=== PATIENT | male | born 1970 | race Caucasian/White ===

== ENCOUNTER → 2019-12-30 11:08 | Outpatient (BNVA) | payer OTHER, SELFPAY | PROVIDERS: PCP Family Medicine; Referring Provider Family Medicine; Visit Provider Internal Medicine Cardiovascular Disease | DX: Z76.89 Persons encountering health services in other specified circumstances (principal) ==

== ENCOUNTER → 2021-01-29 09:46 | Outpatient (BNVA) | payer OTHER, SELFPAY | PROVIDERS: PCP Family Medicine; Referring Provider Family Medicine; Visit Provider Internal Medicine Cardiovascular Disease | DX: I20.8 Other forms of angina pectoris (principal) | CPT/HCPCS: 93005 ==

== ENCOUNTER 2021-07-19 08:19 | Emergency (ER) | payer OTHER, SELFPAY ==
[2021-07-19 08:22] VITALS: BP 160/100; PULSE 86; RESP 16; TEMP 35.7; O2SAT 99; BMI 22.6
--- NOTE | 2021-07-19 08:30 | ED_ITS ---
HPI - General Adult General Chief complaint: Back Pain/Injury Stated complaint: back inj work related Time Seen by Provider: 07/19/21 08:30 Source: patient Mode of arrival: ambulatory Limitations: no limitations History of Present Illness HPI narrative: Patient is a 51 year old male presenting to the emergency department today with left sided low back pain. 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 Patient states that he is having left sided low back pain that is radiating down his left leg. Patient states that he has a history of sciatica and this feels similar to that. Patient denies any dizziness, lightheadedness, abdominal pain, nausea, vomiting, fever, chills, blurry vision, double vision, loss of vision, chest pain, difficulty breathing, shortness of breath, night sweats, pain with urination, increased urinary frequency, increased urinary urgency, blood in his urine or stool, syncope or a near syncopal episode, recent trauma or falls, bowel incontinence, bladder incontinence, bowel retention, bladder retention, or any other complaints at this time. Onset (ago): day(s) Location: back Radiation: extremity (left lower extremity) Severity: mild Severity scale (1-10): 3 Quality: dull Pain Consistency: constant Relieving factors: none Exacerbating factors: none Associated symptoms: denies other symptoms Treatments prior to arrival: none Related Data Previous Rx's Medication Instructions Recorded atorvastatin 80 mg tablet 80 mg PO DAILY #90 tab 07/11/20 metoprolol succinate 50 mg 50 mg PO DAILY #90 tab 07/11/20 tablet,extended release 24 hr lisinopril 10 mg tablet 10 mg PO DAILY #90 tab 09/12/20 aspirin 81 mg tablet,delayed 81 mg PO DAILY 90 Days #90 tab 11/23/20 release ezetimibe 10 mg tablet 10 mg PO DAILY #90 tab 12/20/20 Allergies Allergy/AdvReac Type Severity Reaction Status Date / Time codeine [CODEINE] Allergy Intermediate PANCREATIC Verified 01/29/21 09:50 ISSUE, pancreaitis Review of Systems Constitutional: Constitutional: Reports no additional constitutional complaints, Denies chills, Denies fever(s) and Denies night sweats Eyes: Eyes: Reports no additional eye complaints, Denies blurry vision, Denies change in vision, Denies diplopia, Denies eye discharge, Denies loss of vision and Denies eye pain ENT: Denies dizziness Cardiovascular: Cardiovascular: Reports no additional cardiovascular complaints, Denies chest pain, Denies lightheadedness, Denies Loss of Consciousness and Denies dyspnea Respiratory: Respiratory: Reports no additional respiratory complaints and Denies dyspnea Gastrointestinal: Gastrointestinal: Reports no additional gastrointestinal complaints, Denies abdominal pain, Denies melena, Denies hematochezia, Denies change in bowel habits and Denies change in stool character Genitourinary: Genitourinary: Reports no additional male genitourinary complaints, Denies hematuria, Denies oliguria, Denies difficulty urinating, Denies dysuria, Denies urinary frequency, Denies urinary hesitancy, Denies urinary incontinence and Denies urinary urgency Musculoskeletal: Musculoskeletal: Reports no additional musculoskeletal complaints, Reports back pain, Denies numbness and Denies tingling Neurologic: Denies dizziness, Denies loss of vision, Denies numbness and Denies tingling Psychiatric: Psychiatric: Reports no additional psychiatric complaints Endocrine: Endocrine: Reports no additional endocrine complaints Hematologic/Lymphatic: Hematologic/Lymphatic: Reports no additional hematologic/lymphatic complaints Allergic/Immunologic: Allergic/Immunologic: Reports no additional allergic/immunologic complaints PMFSH Past Medical History Attestation statement: The following information was validated with the patient. Source: old records reviewed Medical History (Updated 07/19/21 @ 08:48 by DAVID Serra) CAD (coronary artery disease) Stable angina Surgical History H/O right wrist surgery History of back surgery History of cardiac cath Family History Family History Father History of heart attack CVD (cardiovascular disease) HTN (hypertension) Mother No problems noted. Social History Social History Advance Directives: No Advance Directives Information Provided: No Physical Exam ED Vital Signs: Vital Signs - 24 hr 07/19/21 08:22 Temperature 96.2 F L Pulse Rate 86 Respiratory Rate 16 Blood Pressure 160/100 H Pulse Oximetry 99 BMI result Body Mass Index 22.6 Const General: cooperative, no acute distress, alert and awake Nutritional Appearance: well nourished Orientation/consciousness: patient oriented x3 Limitations: no limitations HENMT Head: Yes normal to inspection and Yes atraumatic Ears: hearing grossly normal bilaterally and external ears normal General nose exam: Normal external nose present, no nasal discharge noted and no epistaxis Face and sinus: Yes normal facial exam, No abrasion and No laceration Mouth: Normal oral and palatal mucosa present, no drooling and no muffled voice Eyes General: appearance normal, both eyes and all related structures Periorbital: periorbital findings normal Eyelids: Yes eyelids normal Conjunctivae: conjunctivae normal Pupils: Equal, round and reactive pupils present EOM: EOMs intact bilaterally Neck Neck: Yes normal visual inspection, Yes full ROM and Yes no lymphadenopathy Chest Chest palpation & inspection: normal inspection of the chest Resp Effort & Inspection: normal respiratory effort and able to speak in complete sentences Auscultation: clear to auscultation bilaterally Cardio Rate: regular rate Rhythm: regular rhythm GI Inspection: Yes normal to inspection Neuro General: patient oriented x3 and moves all extremities Cranial nerves: Yes Equal, round and reactive pupils present Cognition (Neuro): normal cognition Motor exam (neuro): 5/5 motor strength present throughout Sensory Exam: Normal double simultaneous stimulation for sensation Coordination: [id number] test normal Extrem General: Yes normal to inspection, Yes full ROM and Yes capillary refill normal Psych Appearance: grossly normal Mental Status: mental status grossly normal Affect: normal affect Attitude: cooperative Thought process: Normal thought process present Thought content: Normal thought content present Insight: Good insight present (Psych) Medical Decision Making MDM Narrative Medical decision making narrative: Patient is a 51 year old male presenting to the emergency department today with left sided low back pain. Patient's physical exam was unremarkable. I explained my physical exam findings to the patient. I answered all questions asked by the patient. Patient received IM toradol and PO Ativan which he stated helped his symptoms significantly. I stressed the importance of the patient taking his medication as prescribed. I stressed the importance of the patient following up with his primary care provider and established orthopedist. I stressed the importance of the patient returning to the emergency department immediately if his symptoms were to worsen or if he were to develop any dizziness, shortness of breath, difficulty breathing, chest pain, blurry vision, loss of vision, nausea, vomiting, abdominal pain, fever, chills, back pain, or any other complaints. Patient verbalized agreement and understanding with this treatment plan and discharge. Differential Diagnosis Differential Diagnosis: Back pain, muscle spasm Medical Records Medical records reviewed: Yes I reviewed the patient's medical records. Discharge Plan Discharge Clinical Impression: Back spasm Patient Disposition: Home, Self-Care Instructions: Muscle Spasm (ED), Back Pain (ED) Additional Instructions: Follow up with your primary care provider. Return to the emergency department immediately if your symptoms worsen or if you develop any dizziness, shortness of breath, difficulty breathing, chest pain, blurry vision, loss of vision, nausea, vomiting, abdominal pain, fever, chills, back pain, or any other complaints. Prescriptions: No Action atorvastatin 80 mg tablet 80 mg PO DAILY Qty: 90 3RF metoprolol succinate 50 mg tablet extended release 24 hr 50 mg PO DAILY Qty: 90 3RF lisinopril 10 mg tablet 10 mg PO DAILY Qty: 90 4RF aspirin 81 mg tablet,delayed release (DR/EC) 81 mg PO DAILY 90 Days Qty: 90 3RF ezetimibe 10 mg tablet 10 mg PO DAILY Qty: 90 3RF Referrals: [facility] [Provider Group] Isidra Gardiner MD [Primary Care Provider] - Stand Alone Forms: Work/School Release Interventions: ED Discharge Assessment Last Done: 07/19/21 09:07 Discharge Date/Time: 07/19/21 09:08 Print Language: Lithuanian
[2021-07-19] MEDS: Ketorolac Tromethamine 30 MG/ML VIAL IM (08:59)
[2021-07-19] MEDS: LORazepam 1 MG TABLET PO (08:59)
== END 2021-07-19 09:08 | disposition home or self-care (01) ==
LOC: HO.ED 08:49
PROVIDERS: Emergency Provider Emergency Medicine; PCP Internal Medicine
DX: M62.830 Muscle spasm of back (principal); M79.605 Pain in left leg; Z79.899 Other long term (current) drug therapy
CPT/HCPCS: 96372; 99283; 99284; J1885

== ENCOUNTER 2021-07-30 17:53 | Emergency (ER) | payer OTHER, SELFPAY ==
[2021-07-30 18:21] VITALS: BP 142/88; PULSE 83; RESP 16; TEMP 36.2; O2SAT 98; BMI 22.6
[2021-07-30] MEDS: Ketorolac Tromethamine 30 MG/ML VIAL IM (19:30)
[2021-07-30] MEDS: Acetaminophen 325 MG TABLET 650 MG PO (19:30)
[2021-07-30] MEDS: Lidocaine 4 % Patch ADH..PATCH 1 PATCH TRANSDERMA (19:30)
--- NOTE | 2021-07-30 19:37 | ED.BACK ---
HPI - Back Pain/Injury General Chief Complaint: Back Pain/Injury Stated Complaint: back INJ Time Seen by Provider: 07/30/21 19:23 Source: patient Mode of arrival: ambulatory History of Present Illness HPI Narrative: 51-year-old male with past medical history of back surgery, back spasming presenting to the ED complaining of left-sided low back pain radiating down left lower extremity times a few weeks. Admits pain started after painting, but denies direct trauma, injury or fall. Reports associated left leg paresthesias. Denies numbness, tingling, weakness, urinary incontinence/retention, fever, chills. Has not taken anything for pain. Of note patient was seen and treated in the ED on 07/19/2021 for similar symptoms. Admits has MRI scheduled for tomorrow at our facility Related Data Previous Rx's Medication Instructions Recorded atorvastatin 80 mg tablet 80 mg PO DAILY #90 tab 07/11/20 metoprolol succinate 50 mg 50 mg PO DAILY #90 tab 07/11/20 tablet,extended release 24 hr lisinopril 10 mg tablet 10 mg PO DAILY #90 tab 09/12/20 aspirin 81 mg tablet,delayed 81 mg PO DAILY 90 Days #90 tab 11/23/20 release ezetimibe 10 mg tablet 10 mg PO DAILY #90 tab 12/20/20 cyclobenzaprine 5 mg tablet 5 mg PO Q8H PRN 5 Days #14 tab 07/30/21 lidocaine 5 % topical patch 1 patch TOPICAL DAILY PRN #30 ea 07/30/21 (Lidoderm) MDD remove after 12 hours naproxen 500 mg tablet 500 mg PO BID PRN 10 Days #20 tab 07/30/21 Allergies Allergy/AdvReac Type Severity Reaction Status Date / Time codeine [CODEINE] Allergy Intermediate PANCREATIC Verified 01/29/21 09:50 ISSUE, pancreaitis Review of Systems Review of Systems: Constitutional: No Fever, No Chills ENT/Mouth: No Ear Pain, No Nasal Congestion, No sore throat Cardiovascular: No Chest Pain, No SOB Respiratory: No Cough, No Sputum, No Wheezing Gastrointestinal: No Nausea, No Vomiting, No Diarrhea, No Constipation, No Abdominal pain Genitourinary: No Dysuria, No Urinary Frequency, No Hematuria, No Urinary Incontinence/retentionNo Flank Pain Musculoskeletal: + joint pain, No Myalgias, No Joint Swelling Skin: No Skin Lesions, No rash Neuro: No Weakness, No Numbness, + Paresthesias Yes all other systems are reviewed and are negative Neurologic: Denies Sensory deficit (Neuro) [facility] Past Medical History Attestation statement: The following information was validated with the patient. Medical History CAD (coronary artery disease) Stable angina Surgical History H/O right wrist surgery History of back surgery History of cardiac cath Family History Family History Father History of heart attack CVD (cardiovascular disease) HTN (hypertension) Mother No problems noted. Social History Social History Advance Directives: No Advance Directives Information Provided: No Physical Exam Vital Signs: Vital Signs: Last Vital Signs Temp 97.2 F 07/30/21 18:21 Pulse 83 07/30/21 18:21 Resp 16 07/30/21 18:21 BP 142/88 H 07/30/21 18:21 Pulse Ox 98 07/30/21 18:21 BMI result Body Mass Index 22.6 Const: General: cooperative, healthy appearing and no acute distress Orientation/consciousness: patient oriented x3 Limitations: no limitations HEENT: Head: Yes normal to inspection and Yes atraumatic Ears: hearing grossly normal bilaterally General nose exam: Normal external nose present Face and sinus: Yes normal facial exam Eyes: General: appearance normal, both eyes and all related structures EOM: EOMs intact bilaterally Neck: Neck: Yes normal visual inspection and Yes no meningeal signs Resp: Effort & Inspection: normal respiratory effort and no respiratory distress Cardio: Rate: regular rate Heart sounds: S1 normal heart sound present and S2 normal heart sound present Peripheral pulses: dorsalis pedis present : General: Yes no CVA tenderness Back/Spine/Pelvis: Other: No midline thoracic/lumbar spinous tenderness/step-off or deformity. + left-sided lower lumbar MSK tenderness to palpation/muscle spasming reproducing subjective complaint. No erythema/ecchymosis Back: no CVA tenderness Skin: Rashes: no rashes Wounds: no wounds Neuro: Other: Strength intact throughout. No saddle anesthesia. Sensation intact to light touch. Neurovascular intact distally. Ambulating with steady gait General: patient oriented x3, gait normal, tone normal, moves all extremities, no meningeal signs and no focal motor deficits Gait exam (Neuro): Normal gait present Motor exam (neuro): 5/5 motor strength present throughout Sensory Exam: No Sensory deficit (Neuro) Extrem: General: Yes normal to inspection Course Course Course Narrative: Per Mass PAT patient received 60 tablets of [place] on 07/25/21 -patient upset he is not being prescribed stronger medication. Discussed with him and he should still have remaining opiate medication from last week and cannot prescribe additional opiates at this time MDM - Back Pain/Injury MDM Narrative Medical decision making narrative: 51-year-old male with past medical history of back surgery, back spasming presenting to the ED complaining of left-sided low back pain radiating down left lower extremity times a few weeks. On exam vital signs stable, NAD/nontoxic, no midline spinous tenderness throughout, no red flag symptoms, no saddle anesthesia. Ambulating with steady gait. Concern for sciatica versus muscle spasming versus lumbar radiculopathy. Low concern for cauda equina, cord compression, epidural abscess. Patient with scheduled MRI for tomorrow Plan: Pain management, DC home Differential Diagnosis Differential diagnosis: Likely lumbar radiculopathy, sciatica and strain of lumbar region Medical Records Attestation: I reviewed the patient's medical records. Lab Data Attestation: I reviewed the patient's lab results. Discharge Plan Discharge Clinical Impression: Lumbar radiculopathy Patient Disposition: Home, Self-Care Instructions: Lumbar Radiculopathy (ED) Additional Instructions: Your pain is likely musculoskeletal Flexeril is a muscle relaxer, take at night as it makes you drowsy, do not drive, drink alcohol, or operate machinery while taking it Naproxen as an anti-inflammatory / pain medication, take with food Lidoderm patches are numbing patches, apply to painful area In addition take Tylenol at home If symptoms persist or worsen, pain becomes unbearable, you developed urinary retention or incontinence, or weakness return to the ED Prescriptions: New lidocaine [Lidoderm] 5 % adhesive patch,medicated 1 patch topical DAILY MDD remove after 12 hours PRN (Reason: pain) Qty: 30 0RF Rx Instructions: leave on most painful area for up to 12 hrs naproxen 500 mg tablet 500 mg PO BID PRN (Reason: pain) 10 Days Qty: 20 0RF cyclobenzaprine 5 mg tablet 5 mg PO Q8H PRN (Reason: pain (scale score 7-10)) 5 Days Qty: 14 0RF No Action atorvastatin 80 mg tablet 80 mg PO DAILY Qty: 90 3RF metoprolol succinate 50 mg tablet extended release 24 hr 50 mg PO DAILY Qty: 90 3RF lisinopril 10 mg tablet 10 mg PO DAILY Qty: 90 4RF aspirin 81 mg tablet,delayed release (DR/EC) 81 mg PO DAILY 90 Days Qty: 90 3RF ezetimibe 10 mg tablet 10 mg PO DAILY Qty: 90 3RF Referrals: Isidra Gardiner MD [Primary Care Provider] - Stand Alone Forms: Work/School Release
[2021-07-30] MEDS: oxyCODONE HCl Immed Release 5 MG TABLET PO (20:53)
[2021-07-30] MEDS: Cyclobenzaprine HCl 10 MG TABLET PO (20:54)
[2021-07-30 21:14] VITALS: BP 138/86; PULSE 88; RESP 18; TEMP 36.7; O2SAT 100
== END 2021-07-30 21:16 | disposition home or self-care (01) ==
PROVIDERS: Emergency Provider Emergency Medicine; PCP Internal Medicine
DX: M54.16 Radiculopathy, lumbar region (principal); M79.605 Pain in left leg; M79.604 Pain in right leg; Z79.899 Other long term (current) drug therapy
CPT/HCPCS: 96372; 99283; 99284; J1885

== ENCOUNTER 2021-07-31 18:28 | Outpatient (REF) | payer OTHER, SELFPAY ==
--- NOTE | ~2021-07-31 | MR_ITS ---
MR LUMBAR SPINE WITHOUT AND WITH IV CONTRAST CLINICAL INFORMATION: Radiculopathy. COMPARISON: None available. TECHNIQUE: MRI of the lumbar spine was obtained using routine sequences with and without contrast. Intravenous contrast: Gadavist 7.5 mL FINDINGS: There are 5 nonrib-bearing lumbar-type vertebral bodies. Lumbar alignment is maintained. There are chronic endplate Schmorl's nodes at the L1, L2, and L3 levels. Modic type I and Modic type II endplate signal changes at L4-L5 and L5-S1 and L1-L2. There is no additional bone marrow edema. There are no acute fractures. Moderate to severe disc volume loss at L5-S1 and moderate disc volume loss at L4-L5. Partial disc desiccation at all lumbar levels with exception of L1-L2. There is no pathologic intrathecal enhancement. No pathologic enhancement along the cauda equina nerve roots. There is bilateral perinephric stranding. No significant extraspinal soft tissue findings. Hypertrophic degenerative changes across the SI joints bilaterally. L1-L2: Disc contour is normal. Mild bilateral facet arthropathy. No central canal stenosis and no foraminal stenosis. L2-L3: Diffuse annular disc bulge and moderate bilateral facet arthropathy and ligamentum flavum thickening. No central canal stenosis. There is mild foraminal encroachment bilaterally. L3-L4: Diffuse annular disc bulge with a superimposed right lateral disc osteophyte protrusion that compresses the extraforaminal right L3 nerve root. Severe bilateral facet arthropathy and ligamentum flavum thickening. Mild narrowing of the central canal. Mild to moderate right foraminal stenosis. L4-L5: Laminectomy changes. Diffuse annular disc bulge with a superimposed inferiorly migrating left paracentral disc extrusion that compresses the traversing left L5 nerve root within the left L5 lateral recess. There is enhancing granulation/scar tissue within the epidural space at L4-L5. Disc osteophyte and facet arthropathy result in mild to moderate bilateral foraminal stenosis. L5-S1: Right hemilaminectomy and microdiscectomy changes. Diffuse disc osteophyte and moderate bilateral facet arthropathy. No central canal stenosis. There is a left lateral disc protrusion is in part disc osteophyte which results in severe left foraminal stenosis with compression of the exiting left L5 nerve root. Right lateral disc osteophyte and facet arthropathy result in moderate right-sided foraminal stenosis. MR/MR lumbar spine wo/w con IMPRESSION: - At L5-S1 there are right hemilaminectomy and microdiscectomy changes. A LEFT LATERAL DISC PROTRUSION THAT IS IN PART DISC OSTEOPHYTE RESULTS IN SEVERE LEFT FORAMINAL STENOSIS WITH COMPRESSION OF THE EXITING LEFT L5 NERVE ROOT. Spondylitic changes also result in moderate right-sided foraminal stenosis at L5-S1. - At L4-L5, there are laminectomy changes and there is enhancing granulation/scar tissue within the epidural space. THERE IS AN INFERIORLY MIGRATING LEFT PARACENTRAL DISC EXTRUSION AT L4-L5 THAT COMPRESSES THE TRAVERSING LEFT L5 NERVE ROOT WITHIN THE LEFT L5 LATERAL RECESS. Mild to moderate bilateral foraminal stenosis at this level. - At L3-L4, a right lateral disc osteophyte protrusion compresses the extraforaminal right L3 nerve root. Spondylitic changes at L3-L4 result in mild central canal stenosis. Severe bilateral facet arthropathy at this level.
== END 2021-07-31 18:29 | disposition home or self-care (01) ==
LOC: HO.MRI 18:28
PROVIDERS: Visit Provider Internal Medicine
DX: M54.17 Radiculopathy, lumbosacral region (principal)
CPT/HCPCS: 72158; A9585

== ENCOUNTER 2021-10-23 06:14 | Outpatient (REF) | payer OTHER, SELFPAY ==
--- NOTE | ~2021-10-23 | FL_ITS ---
EXAMINATION: XR FLUOROSCOPY WITH IMAGES CLINICAL INFORMATION: Radiculopathy. COMPARISON: Lumbar spine of 07/31/2021, TECHNIQUE: Fluoroscopy performed by Dr. Jayson Reid. Fluoroscopy time: 0.5 minutes. Cumulative Dose: 9.16 mGy-cm DAP: 1.93 Gy-cm2 Images: 2. FINDINGS: 2 images demonstrate needles and contrast from left-sided injections at the L4 epidural space. FL/FL guidance in treatment room IMPRESSION: Fluoroscopy for pain management procedure.
== END 2021-10-23 06:15 | disposition home or self-care (01) ==
LOC: HO.RADIR 06:14
PROVIDERS: Visit Provider Anesthesiology
DX: M54.16 Radiculopathy, lumbar region (principal); M51.36 Other intervertebral disc degeneration, lumbar region; M96.1 Postlaminectomy syndrome, not elsewhere classified; M47.816 Spondylosis without myelopathy or radiculopathy, lumbar region
CPT/HCPCS: 64483; 64484; J3300

== ENCOUNTER → 2021-12-17 10:00 | Outpatient (RCR) | payer OTHER, SELFPAY ==
[2020-01-10 16:14] LABS: COVID-19 Test Negative (Negative)
== END | disposition home or self-care (01) ==
LOC: HO.EMPCOV 01-10 15:30
PROVIDERS: Visit Provider Internal Medicine
DX: Z20.828 Contact with and (suspected) exposure to other viral communicable diseases (principal)
CPT/HCPCS: 87635; C9803

== ENCOUNTER → 2022-04-08 10:02 | Outpatient (BNVA) | payer OTHER, SELFPAY | PROVIDERS: PCP Internal Medicine; Referring Provider Internal Medicine; Visit Provider Internal Medicine Cardiovascular Disease | DX: I20.8 Other forms of angina pectoris (principal) | CPT/HCPCS: 93005 ==

== ENCOUNTER 2023-05-14 08:46 | Outpatient (AMB) | payer OTHER, SELFPAY ==
[2023-05-14 09:05] VITALS: BP 130/80; PULSE 63; BMI 22.9
--- NOTE | 2023-05-14 09:05 | A.OFFVIS_ITS ---
Intake Vital Signs 05/14/23 09:05 Height 5 ft 11 in Weight 164 lb 7.437 oz BMI 22.9 BP 130/80 Blood Pressure Location Lt brachial Position Sitting Pulse 63 Intake Visit Reasons: 1 year fu Intake Note: pt its here for a 1 yr f/up/ pt its been feeling fine. Manager Local Required: No Accompanied by: Self / Same As Patient Allergies codeine [CODEINE] Allergy (Intermediate, Verified 04/08/22 10:09) PANCREATIC ISSUE, pancreaitis Medication List - Last Reconciled 05/14/23 by Rajinder Pickard MD aspirin 81 mg PO DAILY atorvastatin 80 mg PO DAILY ezetimibe 10 mg PO DAILY lisinopril 10 mg PO DAILY metoprolol succinate ER 50 mg PO DAILY naproxen 500 mg PO BID PRN 10 days HPI HPI Comments History of Present Illness Details 53-year-old gentleman here for follow-up . He was seen at [facility] and underwent cardiac catheterization revealing mid RCA plaque rupture which was treated with a drug-eluting stent. He has been doing fine and has no functional limitations. He has been taken off the Brilinta. He is taking baby aspirin. He had back injury and was out of work for 5 months. He had injections locally and has recovered completely at this stage. Denying any issues at this point otherwise. His main questions are can he stops his cardiovascular medications or or these lifelong medications. 05/14/2023: He returns for follow-up. He has been doing well. No chest discomfort shortness of breath currently. He is saying around 6 months ago he was riding his bike he has some chest tightness and he had aching in his chest that day only. He said since then he has not had any further symptoms. He is active at his work. Taking medications regularly otherwise. Blood pressure control is good. [facility] Medical History CAD (coronary artery disease) Stable angina Surgical History H/O right wrist surgery History of cardiac cath History of back surgery Family History Father History of heart attack CVD (cardiovascular disease) HTN (hypertension) Mother No problems noted. Social History Alcohol intake: current Alcohol intake frequency: 0-2 drinks per day Alcohol type: beer Patient Tobacco Use Status: Current everyday Tobacco user Cigarette Packs Per Day: 0.5 Cigarettes Per Day: 10 Years Smoked: 25 +/- Review of Systems Const Denies chills, Denies fatigue, Denies fever(s), Denies frequent falls, Denies weakness, Denies weight gain and Denies weight loss ENT Denies dizziness Card Denies chest pain, Denies leg edema, Denies lightheadedness, Denies palpitations, Denies dyspnea and Denies dyspnea on exertion Resp Denies cough, Denies dyspnea and Denies dyspnea on exertion GI Denies hematochezia Musc Denies abnormal gait, Denies muscle weakness, Denies numbness, Denies radiating pain into limb and Denies tingling Neuro Denies abnormal gait, Denies dizziness, Denies frequent falls, Denies numbness, Denies tingling and Denies weakness Endo Denies fatigue and Denies palpitations Physical Exam Vital Signs: Last Vital Signs Pulse 63 05/14/23 09:05 BP 130/80 05/14/23 09:05 BMI result Body Mass Index 22.9 GENERAL APPEARANCE: in no acute distress, pleasant. NECK: no carotid bruit, no jugular venous distention. SKIN: no suspicious lesions, warm and dry. HEART: no murmurs, regular rate and rhythm. LUNGS: clear to auscultation bilaterally. ABDOMEN: soft, nontender. EXTREMITIES: no edema. PERIPHERAL PULSES: equal. NEUROLOGIC: No gross deficits, AAO X 3 Office Procedures EKG Details: Sinus rhythm 63 beats per minute, normal axis, low voltage, QTC 407 milliseconds. [id number], Complete Assessment & Plan Assessment & Plan (1) Stable angina: Code(s): I20.8 - Other forms of angina pectoris Plan [age] year gentleman who is here for follow-up. He has known history of coronary disease with previous PCI. He has been doing well. He has low voltage on his EKG. Concerning symptoms currently. Continue take the same medications. We will arrange an echocardiogram for him to assess LV function as well as to look for any pericardial effusion given the low voltage. Clinically he has been stable. Thank you for allowing me to participate in the care of your patient. Please feel free to contact me if you have any questions. Orders: Orders CA echo transthorac w con Today I25.10 - Atherosclerotic heart disease of [place] coronary artery without angina pectoris Coding Level of Care Code Est Pt Level 4 (41799) Diagnoses Stable angina I20.8 CPT Codes EKG - CPT: 11825-[id number], Complete ([id number])
== END 2023-05-14 09:25 | disposition home or self-care (01) ==
PROVIDERS: PCP Physician Assistant; Visit Provider Internal Medicine Cardiovascular Disease
DX: I20.89 Other forms of angina pectoris (principal)
CPT/HCPCS: 93010; 99214

== ENCOUNTER → 2023-05-14 08:46 | Outpatient (BNVA) | payer OTHER, SELFPAY | PROVIDERS: PCP Physician Assistant; Visit Provider Internal Medicine Cardiovascular Disease | DX: I25.118 Atherosclerotic heart disease of native coronary artery with other forms of angina pectoris (principal) | CPT/HCPCS: 93005 ==

== ENCOUNTER → 2023-05-19 10:53 | Outpatient (REF) | payer OTHER, SELFPAY ==
--- NOTE | 2023-05-19 10:55 | CA_ITS ---
Transthoracic Echocardiogram Patient (Last, First, Middle): Satish Pena J Gender: Male Date of : 1970 Age: 53 Procedure Date: 05/19/2023 Procedure Type: Transthoracic Echocardiogram Location: OP Height: 180.34 cm Weight: 74.39 kg BSA: 1.94 m2 Heart Rate: bpm BP: 130 / 78 mmHg Athletics Teacher: JESSICA Referring MD: Rajinder Pickard MD Neuropsychology Director: Rajinder Pickard MD Symptoms: I25.10 - Atherosclerotic heart disease of [place] coronary artery without... Study Quality: Adequate Conclusions: - Normal left ventricular size, thickness, systolic function, and wall motion. The visually estimated ejection fraction is between 55-60%. Diastolic function is normal for age. GLS reduced -16%. - There is normal right ventricular systolic function. RV size upper limit of normal. - The left atrium is normal in size. The right atrium is mildly dilated. - There is mild dilatation of the sinuses of Valsalva measuring 4.21 cm and mild dilatation of the ascending aorta measuring 3.70 cm. Findings Left Ventricle Normal left ventricular size, thickness, systolic function, and wall motion. The visually estimated ejection fraction is between 55-60%. Diastolic function is normal for age. GLS reduced -16%. Right Ventricle There is normal right ventricular systolic function. RV size upper limit of normal. Atria The left atrium is normal in size. The right atrium is mildly dilated. Aortic Valve Normal aortic valve structure and function. There is no aortic valve stenosis. There is no aortic valve regurgitation. Mitral Valve There is no mitral valve regurgitation. There is no mitral valve stenosis. Pulmonic Valve Normal pulmonic valve structure and function. There is trace pulmonic valve regurgitation. Tricuspid Valve Normal tricuspid valve structure. There is trace tricuspid valve regurgitation. Normal right atrial pressure. There is no evidence of pulmonary hypertension. Great Vessels There is mild dilatation of the sinuses of Valsalva measuring 4.21 cm and mild dilatation of the ascending aorta measuring 3.70 cm. The visualized portions of the pulmonary artery and branches are normal. Venous The inferior vena cava is normal in size and collapses greater than 50% with inspiration. Pericardium/Pleural There is no evidence of pericardial effusion. Prior Study Comparison No prior study available for comparison. Measurements 2D Linear Measurements IVSd: 1.02 0.6-0.9/0.6-1.0 cm LVIDd: 5.10 3.9-5.3/4.2-5.9 cm LVIDd Index: 2.63 2.4-3.2/2.2-3.1 cm/m2 LVIDs: 3.25 2.0-3.6 cm LVPWd: 0.88 0.7-1.1 cm LA Diam: 3.20 2.7-3.8/3.0-4.0 cm LAIDs Index: 1.65 1.5-2.3 cm/m2 LV Mass: 218.76 67-162/88-224 g LV Mass Index: 112.76 43-95/49-115 g/m2 LVOT Diam: 2.10 3.0+(-)1.3 cm 2D Systolic Function EF 4C: 55.30 >55% EF 2C: 58.30 >55% EF BiP: 55.60 >55% Mitral Valve MV Pk E: 0.50 MV PK A: 0.59 MV Decel Time: 249.00 E/A: 0.90 E'Lateral: 9.57 E'Medial: 8.27 E/E' Med: 6.10 E/E' Lat: 5.20 PHT: 73.00 MVA PHT: 3.01 Decel Roosevelt: 2.01 Aortic Valve AoV Pk Mariano: 1.11 AoV Mn Mariano: 0.71 AoV VTI: 0.24 AoV Pk Grad: 5.00 Aov Mn Grad: 2.00 JOANIE Cont.VTI: 2.21 LVOT LVOT Pk Mariano: 0.83 LVOT Mn Mariano: 0.46 LVOT VTI: 0.15 LVOT Pk Grad: 3.00 LVOT Mn Grad: 1.00 LVOT Diam: 2.10 LVOT Area: 3.46 Diastolic Function MV Pk E: 0.50 MV Pk A: 0.59 E/A: 0.90 E'Medial: 8.27 E/E' Med: 6.10 E' Laterial: 9.57 E/E' Lat: 5.20 Right Ventricle TAPSE (mm): 26.10 TVS' Mariano: 9.90 Tricuspid Valve RA Press: 3.00 Great Vessels Aorta Sinus of Valsalva: 4.21 2.0-3.[address] Ridge: 2.85 1.7-3.4 cm Ao Asc: 3.70 2.1-3.4 cm Updated in Other Vendor System with Status of Final Rajinder Pickard MD electronically signed on 05/19/2023 12:44:58 PM with status of Final
== END ==
LOC: HO.CARD 10:53
PROVIDERS: Visit Provider Internal Medicine Cardiovascular Disease
DX: I25.10 Atherosclerotic heart disease of native coronary artery without angina pectoris (principal)
CPT/HCPCS: 93306; 93356

== ENCOUNTER → 2023-05-19 10:55 | Outpatient (BNV) | payer OTHER, SELFPAY | PROVIDERS: Visit Provider Internal Medicine Cardiovascular Disease | DX: I25.10 Atherosclerotic heart disease of native coronary artery without angina pectoris (principal) | CPT/HCPCS: 93306; 93356 ==

== ENCOUNTER 2023-07-01 11:20 | Emergency (ER) | payer OTHER, SELFPAY ==
--- NOTE | ~2023-07-01 | XR_ITS ---
EXAMINATION: XR CHEST CLINICAL INFORMATION: Fall, chest trauma COMPARISON: 12/01/2018 TECHNIQUE: Frontal view of the chest was obtained. FINDINGS: No significant abnormality is noted involving the heart, lungs, mediastinum, bony thorax or soft tissues. XR/XR chest 1V IMPRESSION: Unremarkable examination.
--- NOTE | ~2023-07-01 | XR_ITS ---
EXAMINATION: XR ELBOW, LEFT CLINICAL INFORMATION: Fell off ladder COMPARISON: Same day left forearm TECHNIQUE: AP, lateral, and oblique views of the left elbow. FINDINGS: The bones are intact. There is mild soft tissue swelling over the olecranon. No fracture or joint effusion. Alignment is anatomic. Joint spaces are maintained. XR/XR elbow LT 2V IMPRESSION: No bony abnormality.
--- NOTE | ~2023-07-01 | XR_ITS ---
EXAMINATION: XR FOREARM, LEFT CLINICAL INFORMATION: Fell off ladder COMPARISON: Same day left elbow TECHNIQUE: AP and lateral views of the left forearm were obtained. FINDINGS: The bones are intact. There is mild soft tissue swelling of the olecranon which can be seen with olecranon bursitis. No fracture. Imaged portions of the elbow and wrist are unremarkable. XR/XR forearm LT 2V IMPRESSION: No acute bony abnormality. Probable mild olecranon bursitis.
[2023-07-01 11:45] VITALS: BP 122/78; PULSE 65; RESP 20; TEMP 35.9; O2SAT 97; BMI 23.0
--- NOTE | 2023-07-01 11:47 | ED.WOUNDLAC ---
HPI - Wound/Laceration General Chief Complaint: Fall Stated Complaint: l arm laceration Time Seen by Provider: 07/01/23 12:54 Source: patient Mode of arrival: ambulatory Limitations: no limitations History of Present Illness HPI narrative: 53-year-old male history of stable angina, CAD, degenerative disc disease, post laminectomy syndrome presenting to the emergency department for evaluation of left elbow pain with subsequent laceration status post fall off 3 ft ladder, patient reports he was leaning over he leaned over to much and fell right onto his left elbow, the ladder kicked underneath him and scraped him in the chest wall. He reports he has not having chest pain or shortness of breath just burning from the abrasion. He does report that the laceration is large overlying his left elbow. Last tetanus shot about 3 years ago. He reports significant discomfort to his left elbow. Denies numbness, tingling, chest pain, shortness of breath, nausea, vomiting, abdominal pain, headache, vision changes, dizziness and weakness. No head strike or loss of consciousness. Patient takes aspirin. NIHSS_0 GCS- 15 Related Data Previous Rx's ?Medication ?Instructions ?Recorded naproxen 500 mg tablet 500 mg PO BID PRN pain 10 days #20 04/08/22 tabs ezetimibe 10 mg tablet 10 mg PO DAILY #90 tabs 10/15/22 aspirin 81 mg tablet,delayed 81 mg PO DAILY #90 tabs 12/04/22 release lisinopril 10 mg tablet 10 mg PO DAILY #90 tabs 03/04/23 atorvastatin 80 mg tablet 80 mg PO DAILY #90 tabs 06/30/23 metoprolol succinate 50 mg 50 mg PO DAILY #90 tabs 06/30/23 tablet,extended release 24 hr cephalexin 500 mg tablet 500 mg PO Q6H 7 days #28 tabs 07/01/23 ketorolac 10 mg tablet 10 mg PO TID PRN pain 5 days #15 07/01/23 tabs Allergies Allergy/AdvReac Type Severity Reaction Status Date / Time codeine [CODEINE] Allergy Intermediate PANCREATIC Verified 07/01/23 11:47 ISSUE, pancreaitis Review of Systems Review of Systems: Yes all other systems are reviewed and are negative PMFSH Past Medical History Attestation statement: The following information was validated with the patient. Source: old records reviewed and nursing notes reviewed Medical History Stable angina CAD (coronary artery disease) Surgical History H/O right wrist surgery History of cardiac cath History of back surgery Family History Family History Father History of heart attack CVD (cardiovascular disease) HTN (hypertension) Mother No problems noted. Social History Social History Alcohol intake: current Alcohol intake frequency: 0-2 drinks per day Alcohol type: beer Patient Tobacco Use Status: Current everyday Tobacco user Cigarette Packs Per Day: 0.5 Cigarettes Per Day: 10 Years Smoked: 25 +/- Advance Directives: No Advance Directives Information Provided: Yes Do you have a plan to hurt others: No Plan Physical Exam Vital Signs: Vital Signs: Last Vital Signs Temp 96.7 F L 07/01/23 15:12 Pulse 65 07/01/23 15:12 Resp 20 07/01/23 15:12 BP 122/78 07/01/23 15:12 Pulse Ox 97 07/01/23 15:12 O2 Del Method Room Air 07/01/23 15:12 BMI result Body Mass Index 23.0 vss Appearance: Alert.? Oriented X3.? No acute distress.? Head: Normocephalic, atraumatic, no step-offs or deformities Eyes: Pupils equal, round and reactive to light.? ENT: Pharynx normal.? Neck: Normal inspection.? Neck supple.? CVS: Normal heart rate and rhythm.? Pulses normal.? Respiratory: No respiratory distress.? Breath sounds normal.? Abdomen: Soft and nontender.? Skin: Skin warm and dry.? Normal skin color.? Normal skin turgor.? Extremities: No lower extremity edema.? No calf ttp. 5/5 strength to bilateral upper and lower extremities 2+ radial pulses equal bilateral, 2+ brachial pulses equal bilateral. Normal hand crushing foreman. No wrist drop. Normal sensation distally bilaterally. There is a large 10 cm laceration traingular shaped overlying the left elbow no visualized FB. Full Rom to b/l elbows. Back: No midline tenderness, no C-spine tenderness, full range of motion, no CVA tenderness bilaterally Neuro: Oriented X 3.? No motor deficit.? No sensory deficit. CN 2-12 intact . Normal ivsyef-[id number], [id number]-[id number] steady tandem gait normal coordination. Course Course Course Narrative: This is a rapid medical exam completed by Mary [employer] PROFESSOR: Additional HPI, ROS, PE not included below will be deferred to primary provider. Fell off a ladder roughly 3 feet. No LOC, no dizziness or cp prior to falling. Laceration left arm with pain and throbbing sensation. On baby ASA. Last tetanus 3-4 years ago Reevaluation(s) Reevaluation #1: No acute bony abnormality in the left forearm probable mild olecranon bursitis likely secondary to trauma or fall. X-ray of left elbow no bony abnormality. Laceration to left elbow repaired with 8, 4-0 sutures, no complications patient tolerated well. Before procedure the area was extensively irrigated Time: 14:39 Reevaluation #2: CXR pending. Time: 14:42 Reevaluation #3: Chest x-ray unremarkable. Plan at this time is discharge. Educated patient on diagnosis and treatment plan, answered all question, patient verbalizes understanding. At this time patient will be discharged home, advised to return with new or worsening symptoms. Educated on worrisome signs and symptoms and when to return. At this time I feel comfortable discharge home. Time: 15:45 Medications Administered Discontinued Medications Generic Name Dose Route Start Last Admin Trade Name Waleq PRN Reason Stop Dose Admin Ketorolac Tromethamine 30 mg 07/01/23 13:05 07/01/23 13:24 Ketorolac Tromethamine 30 Mg/Ml Vial IM 07/01/23 13:06 30 mg ONCE ONE Administration Lidocaine HCl 5 ml 07/01/23 13:06 07/01/23 14:38 Lidocaine Hcl 2 % Mpf 5 Ml Vial INFILTRATI 07/01/23 13:07 Not Given ONCE ONE Lidocaine HCl 5 ml 07/01/23 13:06 07/01/23 14:38 Lidocaine Hcl 2 % Mpf 5 Ml Vial INFILTRATI 07/01/23 13:07 Not Given ONCE ONE Lidocaine HCl 5 ml 07/01/23 13:06 07/01/23 14:38 Lidocaine Hcl 2 % Mpf 5 Ml Vial INFILTRATI 07/01/23 13:07 Not Given ONCE ONE Lidocaine HCl 15 ml 07/01/23 14:36 07/01/23 14:42 Lidocaine Hcl 1 % Mpf 5 Ml Vial INFILTRATI 07/01/23 14:37 15 ml ONCE ONE Administration Lorazepam 1 mg 07/01/23 13:06 07/01/23 13:24 Lorazepam 1 Mg Tablet PO 07/01/23 13:07 1 mg ONCE ONE Administration Medical Decision Making Medical Decision Making [facility] Narrative: 1314 53-year-old male presents with left elbow pain and laceration overlying as well as abrasions overlying the right chest wall status post fall off 3 ft ladder. No head strike or loss of consciousness Small abrasion overlying the right chest wall. No lower extremity edema.? No calf ttp. 5/5 strength to bilateral upper and lower extremities 2+ radial pulses equal bilateral, 2+ brachial pulses equal bilateral. Normal hand crushing foreman. No wrist drop. Normal sensation distally bilaterally. There is a large 10 cm laceration overlying the left elbow no visualized FB. Full ROM to b/l elbows. Neuro nonfocal NIHSS-0 GCS- 15 History and physical exam concerning for laceration that will require repair to left elbow will rule out fracture dislocations of elbow although unlikely. No signs of neurovascular compromise or threat to upper extremity or lower extremity limbs. Unlikely intracranial hemorrhage, stroke, posterior stroke, NIH stroke scale 0 GCS 15, neuro nonfocal. Chest wall abrasion likely secondary to latter scratching his chest wall, unlikely hemorrhage, or internal injury to chest, abdomen or pelvis. Plan at this time will obtain x-ray of left elbow and x-ray of chest. Will repair laceration. Differential Diagnosis Differential Diagnoses: The differential diagnosis associated with the presentation includes History and physical exam concerning for laceration that will require repair to left elbow will rule out fracture dislocations of elbow although unlikely. No signs of neurovascular compromise or threat to upper extremity or lower extremity limbs. Unlikely intracranial hemorrhage, stroke, posterior stroke, NIH stroke scale 0 GCS 15, neuro nonfocal. Chest wall abrasion likely secondary to latter scratching his chest wall, unlikely hemorrhage, or internal injury to chest, abdomen or pelvis. Admission/Observation Consideration of admission/observation: Escalation of care including admission/observation considered unlikely Lab Data [facility] Lab Attestation statement: I reviewed the patient's lab results. Independent Interpretation I performed an independent interpretation of an: Plain X-Ray Radiology Impression Discussion of test interpretation with radiology: I have reviewed the radiologist's reading. External Record Review External record reviewed: Inpatient record, Office record, Outpatient record, Prior outpatient labs, Prior outpatient radiology, Primary care record and Outside ED record Prescription Management I considered prescription management with: Pain Medication Critical Care Time Critical Care Time Critical Care Time: No Discharge Plan Discharge Clinical Impression: Chest wall contusion, Abrasion of chest wall, Laceration of elbow, left, Elbow pain, left Patient Disposition: Still a Patient Instructions: Laceration (ED), Contusion in Adults (ED), Abrasion (ED), Laceration Without Closure (ED) Additional Instructions: Take your medications as prescribed. If you were prescribed antibiotics today, it is important that you take your medication to their entirety, do not skip any doses, do not finish them early. Follow-up with your primary care provider this week. Return to the emergency department with new or worsening symptoms. Such as fevers, chills, chest pain, shortness of breath, nausea, vomiting, dizziness, headache, vision changes, lethargy In case of emergency call 911 Return in 7-10 days for suture removal. Look out for signs of infection, redness, swelling, pain, discharge or fever. Toradol has been sent to your pharmacy, you tolerated this well in the department. Please take this as prescribed do not take this with ibuprofen, or other NSAIDs, do not mix this with alcohol. Side effects of this medication including increased risk for bleeding and possible kidney injury. If you develop any new or worsening symptoms please return. Or if you experience chest pain, shortness of breath please return. Leave dressing on until tonight --> open to air let it dry. XR/XR forearm LT 2V IMPRESSION: No acute bony abnormality. Probable mild olecranon bursitis. XR/XR elbow LT 2V IMPRESSION: No bony abnormality. XR/XR chest 1V IMPRESSION: Unremarkable examination. Prescriptions: New ketorolac 10 mg tablet 10 mg PO TID PRN (Reason: pain) 5 Days Qty: 15 0RF cephalexin 500 mg tablet 500 mg PO Q6H 7 Days Qty: 28 0RF No Action ezetimibe 10 mg tablet 10 mg PO DAILY Qty: 90 3RF aspirin 81 mg tablet,delayed release (DR/EC) 81 mg PO DAILY Qty: 90 3RF lisinopril 10 mg tablet 10 mg PO DAILY Qty: 90 3RF metoprolol succinate 50 mg tablet extended release 24 hr 50 mg PO DAILY Qty: 90 4RF atorvastatin 80 mg tablet 80 mg PO DAILY Qty: 90 4RF naproxen 500 mg tablet 500 mg PO BID PRN (Reason: pain) 10 Days Qty: 20 0RF Referrals: Physician,Unknown J [Primary Care Provider] - 2 days Stand Alone Forms: Work/School Release Interventions: ED Discharge Assessment Last Done: 07/01/23 15:12 Discharge Date/Time: 07/01/23 15:13 Print Language: Spanish
[2023-07-01] MEDS: LORazepam 1 MG TABLET PO (13:24)
[2023-07-01] MEDS: Ketorolac Tromethamine 30 MG/ML VIAL IM (13:24)
[2023-07-01] MEDS: Lidocaine HCl 1 % MPF 5 ML VIAL 15 ML INFILTRATI (14:42)
[2023-07-01 15:12] VITALS: BP 122/78; PULSE 65; RESP 20; TEMP 35.9; O2SAT 97
== END 2023-07-01 15:13 | disposition still patient (30) ==
PROVIDERS: Emergency Provider Student in an Organized Health Care Education/Training Program
DX: S51.012A Laceration without foreign body of left elbow, initial encounter (principal); S20.219A Contusion of unspecified front wall of thorax, initial encounter; S20.311A Abrasion of right front wall of thorax, initial encounter; M25.522 Pain in left elbow; I25.118 Atherosclerotic heart disease of native coronary artery with other forms of angina pectoris; Z79.82 Long term (current) use of aspirin; W11.XXXA Fall on and from ladder, initial encounter; Y93.9 Activity, unspecified; Y92.9 Unspecified place or not applicable; Y99.9 Unspecified external cause status
CPT/HCPCS: 12004; 71045; 73070; 73090; 96372; 99284; J1885

== ENCOUNTER 2023-07-08 15:10 | Emergency (ER) | payer OTHER, SELFPAY ==
[2023-07-08 15:13] VITALS: BP 137/95; PULSE 68; RESP 18; TEMP 36.8; O2SAT 96; BMI 22.7
--- NOTE | 2023-07-08 15:31 | ED_ITS ---
HPI - Wound/Laceration General Chief Complaint: Wound/Laceration Stated Complaint: Suture removal Time Seen by Provider: 07/08/23 15:30 Source: patient and old records reviewed Mode of arrival: ambulatory Limitations: no limitations History of Present Illness HPI narrative: 53-year-old male presents to the ER for suture removal and wound evaluation. Patient was seen here 7 days ago for a laceration to his left elbow region. Eight sutures were placed to close the wound. Reports adequate wound healing with no significant redness or drainage. Onset (ago): day(s) () Extremity Location: left: elbow Context: accidental Associated symptoms: none Related Data Previous Rx's ?Medication ?Instructions ?Recorded naproxen 500 mg tablet 500 mg PO BID PRN pain 10 days #20 04/08/22 tabs ezetimibe 10 mg tablet 10 mg PO DAILY #90 tabs 10/15/22 aspirin 81 mg tablet,delayed 81 mg PO DAILY #90 tabs 12/04/22 release lisinopril 10 mg tablet 10 mg PO DAILY #90 tabs 03/04/23 atorvastatin 80 mg tablet 80 mg PO DAILY #90 tabs 06/30/23 metoprolol succinate 50 mg 50 mg PO DAILY #90 tabs 06/30/23 tablet,extended release 24 hr cephalexin 500 mg tablet 500 mg PO Q6H 7 days #28 tabs 07/01/23 ketorolac 10 mg tablet 10 mg PO TID PRN pain 5 days #15 07/01/23 tabs Allergies Allergy/AdvReac Type Severity Reaction Status Date / Time codeine [CODEINE] Allergy Intermediate PANCREATIC Verified 07/08/23 15:16 ISSUE, pancreaitis Review of Systems Review of Systems: Yes all other systems are reviewed and are negative [facility] Past Medical History Medical History Stable angina CAD (coronary artery disease) Surgical History H/O right wrist surgery History of cardiac cath History of back surgery Family History Family History Father History of heart attack CVD (cardiovascular disease) HTN (hypertension) Mother No problems noted. Social History Social History Alcohol intake: current Alcohol intake frequency: 0-2 drinks per day Alcohol type: beer Patient Tobacco Use Status: Current everyday Tobacco user Cigarette Packs Per Day: 0.5 Cigarettes Per Day: 10 Years Smoked: 25 +/- Advance Directives: No Advance Directives Information Provided: No Physical Exam Vital Signs: Vital Signs: Last Vital Signs Temp 98.2 F 07/08/23 16:52 Pulse 68 07/08/23 16:52 Resp 18 07/08/23 16:52 BP 137/95 H 07/08/23 16:52 Pulse Ox 96 07/08/23 16:52 O2 Del Method Room Air 07/08/23 16:52 BMI result Body Mass Index 22.7 Appearance: Alert. Oriented X3. No acute distress. HEENT: normal inspection CVS: Normal heart rate and rhythm. Pulses normal. Respiratory: No respiratory distress. Skin: Skin warm and dry. Normal skin color. Normal skin turgor. No rashes. Extremities: Left elbow with a v-shaped wound proximally 2.5 x2.5 cm with some central scabbing, minimal erythema at the medial side, no fluctuance or induration, no drainage. No warmth. Wound is well approximated without any dehiscence Neuro: Oriented X 3. Grossly normal, nonfocal Medical Decision Making Medical Decision Making MDM Narrative: 53-year-old male presents to the ER for evaluation of his wound sustained 7 days ago when he fell off a 3 ft ladder sustaining a laceration to his left elbow. He required 8 sutures for wound closure. Wound appears to be healing appropriately. No evidence of infection at this time. All 8 sutures were successfully removed in triage. steri strips were applied to ensure wound closure and appropriate healing. Wound care discussed with the patient. He is stable for discharge home Differential Diagnosis Differential Diagnoses: The differential diagnosis associated with the presentation includes Appropriate wound healing, delayed wound healing, cellulitis, dehiscence External Record Review External record reviewed: Outpatient record, Prior outpatient labs and Prior outpatient radiology Prescription Management I considered prescription management with: Pain Medication and Antibiotic Critical Care Time Critical Care Time Critical Care Time: No Discharge Plan Discharge Clinical Impression: Visit for suture removal Patient Disposition: Home, Self-Care Instructions: Stitches Removal (ED) Prescriptions: No Action ezetimibe 10 mg tablet 10 mg PO DAILY Qty: 90 3RF aspirin 81 mg tablet,delayed release (DR/EC) 81 mg PO DAILY Qty: 90 3RF lisinopril 10 mg tablet 10 mg PO DAILY Qty: 90 3RF metoprolol succinate 50 mg tablet extended release 24 hr 50 mg PO DAILY Qty: 90 4RF atorvastatin 80 mg tablet 80 mg PO DAILY Qty: 90 4RF ketorolac 10 mg tablet 10 mg PO TID PRN (Reason: pain) 5 Days Qty: 15 0RF cephalexin 500 mg tablet 500 mg PO Q6H 7 Days Qty: 28 0RF naproxen 500 mg tablet 500 mg PO BID PRN (Reason: pain) 10 Days Qty: 20 0RF Interventions: ED Discharge Assessment Last Done: 07/08/23 16:52 Discharge Date/Time: 07/08/23 16:52 Print Language: Irish
[2023-07-08 16:13] VITALS: BP 137/95; PULSE 68; RESP 18; TEMP 36.8; O2SAT 96
[2023-07-08 16:52] VITALS: BP 137/95; PULSE 68; RESP 18; TEMP 36.8; O2SAT 96
== END 2023-07-08 16:52 | disposition home or self-care (01) ==
LOC: HO.ED 16:46
PROVIDERS: Emergency Provider Emergency Medicine; PCP Physician Assistant
DX: S51.012D Laceration without foreign body of left elbow, subsequent encounter (principal); X58.XXXD Exposure to other specified factors, subsequent encounter
CPT/HCPCS: 99282

== ENCOUNTER 2024-06-02 10:34 | Outpatient (AMB) | payer OTHER, SELFPAY ==
--- NOTE | 2024-06-02 10:36 | MHC.OFFVIS ---
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 He was seen at [facility] and underwent cardiac catheterization revealing mid RCA plaque rupture which was treated with a drug-eluting stent. He has been doing fine and has no functional limitations. He has been taken off the Brilinta. He is taking baby aspirin. He had back injury and was out of work for 5 months. He had injections locally and has recovered completely at this stage. Denying any issues at this point otherwise. His main questions are can he stops his cardiovascular medications or or these lifelong medications. 05/14/2023: He returns for follow-up. He has been doing well. No chest discomfort shortness of breath currently. He is saying around 6 months ago he was riding his bike he has some chest tightness and he had aching in his chest that day only. He said since then he has not had any further symptoms. He is active at his work. Taking medications regularly otherwise. Blood pressure control is good. 06/02/2024: He is here for follow-up. He has been doing well. No exertional symptoms. Blood pressure is a little low but he has not been drinking enough water and I have advised him to hydrate himself well. He is asymptomatic though. [facility] Medical History Stable angina CAD (coronary artery disease) Surgical History H/O right wrist surgery History of cardiac cath History of back surgery Family History Father History of heart attack CVD (cardiovascular disease) HTN (hypertension) Mother No problems noted. Social History Alcohol intake: current Alcohol intake frequency: 0-2 drinks per day Alcohol type: beer Patient Tobacco Use Status: Current everyday Tobacco user Cigarette Packs Per Day: 0.5 Cigarettes Per Day: 10 Years Smoked: 25 +/- Review of Systems Const Denies chills, Denies fatigue, Denies fever(s), Denies frequent falls, Denies weakness, Denies weight gain and Denies weight loss ENT Denies dizziness Card Denies chest pain, Denies leg edema, Denies lightheadedness, Denies palpitations, Denies dyspnea and Denies dyspnea on exertion Resp Denies cough, Denies dyspnea and Denies dyspnea on exertion GI Denies hematochezia Musc Denies abnormal gait, Denies muscle weakness, Denies numbness, Denies radiating pain into limb and Denies tingling Neuro Denies abnormal gait, Denies dizziness, Denies frequent falls, Denies numbness, Denies tingling and Denies weakness Endo Denies fatigue and Denies palpitations Physical Exam Vital Signs: Last Vital Signs Pulse 59 06/02/24 10:38 BP 100/60 06/02/24 10:38 BMI result Body Mass Index 23.0 GENERAL APPEARANCE: in no acute distress, pleasant. NECK: no carotid bruit, no jugular venous distention. SKIN: no suspicious lesions, warm and dry. HEART: no murmurs, regular rate and rhythm. LUNGS: clear to auscultation bilaterally. ABDOMEN: soft, nontender. EXTREMITIES: no edema. PERIPHERAL PULSES: equal. NEUROLOGIC: No gross deficits, AAO X 3 Office Procedures EKG Details: Sinus bradycardia 59 beats per minute, normal axis, low-voltage QRS, QTC 392 milliseconds. [id number]-[id number], Complete Assessment & Plan Assessment & Plan (1) Stable angina: Code(s): I20.8 - Other forms of angina pectoris Category: Medical Plan [age] year gentleman who is here for follow-up. He has known history of coronary disease with previous PCI. He has been doing well. He has low voltage on his EKG. No concerning symptoms currently. Continue take the same medications. Echocardiography in May 2023 has shown EF 55-60% without any regional wall motion abnormalities, RV size at upper limit of normal and mild dilation of aorta at the sinus of Valsalva 4.2 cm. Ascending aorta 3.7 cm. He will see us back in a year. At that time I will consider repeating echocardiography. Thank you for allowing me to participate in the care of your patient. Please feel free to contact me if you have any questions. Coding Level of Care Code Est Pt Level 4 (99338) Complex EM visit Add On G2211 Diagnoses Stable angina I20.8 CPT Codes EKG - CPT: 05358-[id number], Complete ([id number])
[2024-06-02 10:38] VITALS: BP 100/60; PULSE 59; BMI 23.0
== END 2024-06-02 11:12 | disposition home or self-care (01) ==
LOC: HO.HCS 10:34
PROVIDERS: PCP Physician Assistant; Visit Provider Internal Medicine Cardiovascular Disease
DX: I20.89 Other forms of angina pectoris (principal)
CPT/HCPCS: 93010; 99214

== ENCOUNTER → 2024-06-02 10:34 | Outpatient (BNVA) | payer OTHER, SELFPAY | PROVIDERS: PCP Physician Assistant; Visit Provider Internal Medicine Cardiovascular Disease | DX: I20.89 Other forms of angina pectoris (principal); R00.1 Bradycardia, unspecified | CPT/HCPCS: 93005 ==

== ENCOUNTER 2024-07-21 17:50 | Emergency (ER) | payer OTHER, SELFPAY ==
--- NOTE | ~2024-07-21 | XR_ITS ---
CLINICAL HISTORY: cp Two views of the chest. COMPARISON: XR chest dated 07/01/23 at 13:21 EDT FINDINGS: Normal heart size. Atherosclerotic thoracic aorta. No consolidation. No pleural effusion or pneumothorax. No fracture identified. IMPRESSION: 1. No consolidation. This document has been electronically signed by: Koko Helton MD on 07/21/2024 18:47:00
--- NOTE | 2024-07-21 17:52 | ECG_ITS ---
Test Reason : CHEST PAIN Blood Pressure : */* mmHG Vent. Rate : 61 BPM Atrial Rate : 61 BPM P-R Int : 168 ms QRS Dur : 92 ms QT Int : 402 ms P-R-T Axes : 61 -37 19 degrees QTcB Int : 404 ms Normal sinus rhythm Left axis deviation Low voltage QRS Inferior infarct (cited on or before 01-Dec-2018) Abnormal ECG When compared with ECG of 01-Dec-2018 20:57, No significant change was found Referred By: Josselyn Bryan Electronically Signed By: SHILPI LANGE MD
[2024-07-21 18:06] VITALS: BP 125/89; PULSE 65; RESP 16; TEMP 36.5; O2SAT 96; BMI 22.8
--- NOTE | 2024-07-21 18:06 | ED.CHESTPAIN ---
HPI - Chest Pain General Chief Complaint: Chest Pain Stated Complaint: chest pain Time Seen by Provider: 07/21/24 18:16 Source: patient Limitations: no limitations History of Present Illness ED Provider: Caterina Rasmussen PA-C HPI narrative: 54-year-old male with strong family history of coronary artery disease at a young age, tobacco abuse, known coronary artery disease status post PCI presents with chest pain. Patient states he developed central chest pressure with radiation to the right side of the neck approximately 1/2 hour prior to arrival. The discomfort resolved without intervention. Denies recent cough or cold symptoms or fever. Denies concurrent diaphoresis or nausea. Denies new heavy lifting or physical activity that could have precipitated chest wall strain. Related Data Previous Rx's ?Medication ?Instructions ?Recorded atorvastatin 80 mg tablet 80 mg PO DAILY #90 tabs 06/30/23 metoprolol succinate 50 mg 50 mg PO DAILY #90 tabs 06/30/23 tablet,extended release 24 hr aspirin 81 mg tablet,delayed 81 mg PO DAILY #90 tabs 11/24/23 release lisinopril 10 mg tablet 10 mg PO DAILY #90 tabs 02/20/24 ezetimibe 10 mg tablet 10 mg PO DAILY #90 tabs 06/28/24 Allergies Allergy/AdvReac Type Severity Reaction Status Date / Time codeine [CODEINE] Allergy Intermediate PANCREATIC Verified 07/21/24 18:07 ISSUE, pancreaitis Review of Systems Review of Systems: Yes all other systems are reviewed and are negative Constitutional: Constitutional: Denies fatigue and Denies fever(s) Cardiovascular: Cardiovascular: Reports chest pain and Denies dyspnea Respiratory: Respiratory: Denies cough and Denies dyspnea Gastrointestinal: Gastrointestinal: Denies abdominal pain, Denies nausea and Denies vomiting Endocrine: Endocrine: Denies fatigue [facility] Past Medical History Attestation statement: The following information was validated with the patient. Medical History Stable angina CAD (coronary artery disease) Surgical History H/O right wrist surgery History of cardiac cath History of back surgery Family History Family History Father History of heart attack CVD (cardiovascular disease) HTN (hypertension) Mother No problems noted. Social History Social History Alcohol intake: current Alcohol intake frequency: 0-2 drinks per day Alcohol type: beer Patient Tobacco Use Status: Current everyday Tobacco user Cigarette Packs Per Day: 0.5 Cigarettes Per Day: 10 Years Smoked: 25 +/- Smoked in Last 30 Days: Yes Use of substances other than those prescribed or required for medical reasons: Yes Substance Use Type: Marijuana Substance Use Frequency: Daily Advance Directives: No Advance Directives Information Provided: Yes Do you have a plan to hurt others: No Plan Physical Exam Vital Signs: Vital Signs: Last Vital Signs Temp 97.7 F 07/21/24 18:06 Pulse 65 07/21/24 18:06 Resp 16 07/21/24 18:06 BP 125/89 07/21/24 18:06 Pulse Ox 96 07/21/24 18:06 O2 Del Method Room Air 07/21/24 18:06 BMI result Body Mass Index 22.8 Const: Other: Alert well-appearing Orientation/consciousness: patient oriented x3 Resp: Effort & Inspection: normal respiratory effort Cardio: Other: Normal peripheral perfusion Skin: Other: Warm dry no rash Neuro: General: patient oriented x3, gait normal, no focal motor deficits and CN's II-XI intact bilaterally Psych: Other: Cooperative Course Course Course Narrative: This is a Rapid Medical Exam performed in triage by Josselyn Bryan PA-C. Full HPI, ROS and PE to be performed by primary ED provider. 54 yo M w/PMHx CAD, presenting to the ED c/o CP [id number] described as heaviness & pain rad to neck. Admits to similar sx 5yrs ago when he had stent placed. states pain is gone now. denies N/V, SOB PE: NAD, nontoxic appearing, talking in complete sentences Plan: EKG, labs, CXR Medications Administered Discontinued Medications Generic Name Dose Route Start Last Admin Trade Name Freq PRN Reason Stop Dose Admin Aspirin 324 mg 07/21/24 18:25 07/21/24 18:31 Aspirin 81 Mg Tab.Chew PO 07/21/24 18:26 324 mg ONCE ONE Administration Medical Decision Making Medical Decision Making [facility] Narrative: 54-year-old male with strong family history of coronary artery disease at a young age, tobacco abuse, known coronary artery disease status post PCI presents with chest pain. Patient states he developed central chest pressure with radiation to the right side of the neck approximately 1/2 hour prior to arrival. The discomfort resolved without intervention. Denies recent cough or cold symptoms or fever. Denies concurrent diaphoresis or nausea. Denies new heavy lifting or physical activity that could have precipitated chest wall strain. Problem: Known coronary artery disease History: Per patient I have considered the following differential diagnoses: ACS, chest wall strain, costochondritis, pneumonia, viral syndrome Plan: ACS considered, screening labs including cardiac enzyme and chest x-ray obtained. The patient has been afebrile, has not had any infectious symptoms to suggest pneumonia or costochondritis. He also has no mechanism of injury to suggest chest wall strain. He currently is chest pain-free, giving aspirin simply secondary to his history. I have independently reviewed the following tests: Labs: No leukocytosis, not anemic, no electrolyte abnormality, 1st troponin negative at < 2.7, <2.7 EKG: Normal sinus rhythm, rate of 61, no ischemic changes no ectopy, no change from prior study, QTC 404 Chest x-ray, FINDINGS: Normal heart size. Atherosclerotic thoracic aorta. No consolidation. No pleural effusion or pneumothorax. No fracture identified. IMPRESSION: 1. No consolidation. Lab Data 07/21/24 18:17 07/21/24 18:17 Labs: Lab Results 07/21/24 07/21/24 07/21/24 Range/Units 18:17 18:18 20:20 WBC 10.1 (4.8-10.8) X10*3/uL RBC 4.76 (4.60-5.80) X10*6/uL Hgb 14.9 (14.0-18.0) g/dl Hct 43.0 (42.0-52.0) % MCV 90.3 (80.0-98.0) fL MCH 31.3 (27.0-33.0) pg MCHC 34.7 (31.0-36.0) g/dl RDW 13.9 (11.0-16.0) % Plt Count 248 (160-400) X10*3/uL MPV 8.8 L (9.4-12.4) fL Immature Gran % (Auto) 0.3 (0.0-0.4) % Neut % (Auto) 60.1 (45-73) % Lymph % (Auto) 26.7 (20-40) % [place] % (Auto) 9.1 (2-11) % Eos % (Auto) 3.4 (0-4) % Baso % (Auto) 0.4 (0-2) % Lymph # (Auto) 2.7 (1.2-4.9) X10*3/uL [place] # (Auto) 0.9 (0.1-1.2) X10*3/uL Eos # (Auto) 0.3 (0.0-0.4) X10*3/uL Baso # (Auto) 0.0 (0.0-0.2) X10*3/uL Abs Immat Gran (auto) 0.03 (0.00-0.03) X10*3/uL Absolute Neuts (auto) 6.1 (2.0-8.3) x10*3/uL Absolute Nucleated RBC 0.000 (0.0-0.012) X10*3/uL Nucleated RBC % (auto) 0.0 (0.0-0.2) /100WBC Sodium 142 (135-145) mmol/L Potassium 4.4 (3.3-5.1) mmol/L Chloride 108 (96-108) mmol/L Carbon Dioxide 27 (22-29) mmol/L Anion Gap 11 L (12-20) BUN 15 (9-16) mg/dL Creatinine 0.87 (0.5-1.4) mg/dL Estim Creat Clear Calc 103.1 Estimated GFR > 60 Random Glucose 95 (60-115) mg/dL Calcium 9.7 (8.4-10.2) mg/dL Magnesium 1.9 (1.6-2.6) mg/dL Total Bilirubin 0.4 (0.0-1.0) mg/dL Direct Bilirubin 0.2 (0.0-0.5) mg/dL AST 36 (5-37) U/L ALT 39 (0-40) U/L Alkaline Phosphatase 87 (39-117) U/L Troponin I High Sens < 2.7 < 2.7 (<3.5-35.0) ng/L Total Protein 6.8 (6.5-8.0) g/dL Albumin 4.4 (3.5-5.0) g/dL Influenza Type A (PCR) NEGATIVE (Negative) Influenza Type B (PCR) NEGATIVE (Negative) RSV RNA Qual (PCR) NEGATIVE (Negative) SARS-CoV-2 RNA (RT-PCR) NEGATIVE (Negative) Discharge Plan Discharge Clinical Impression: Chest pain Patient Disposition: Home, Self-Care Instructions: Chest Pain (ED) Additional Instructions: All of your screening labs including 2 cardiac enzymes were normal, there were no concerning changes on the EKG in the chest x-ray is clear. 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 Prescriptions: No Action metoprolol succinate 50 mg tablet extended release 24 hr 50 mg PO DAILY Qty: 90 4RF atorvastatin 80 mg tablet 80 mg PO DAILY Qty: 90 4RF aspirin 81 mg tablet,delayed release (DR/EC) 81 mg PO DAILY Qty: 90 3RF lisinopril 10 mg tablet 10 mg PO DAILY Qty: 90 3RF ezetimibe 10 mg tablet 10 mg PO DAILY Qty: 90 3RF Stand Alone Forms: Work/School Release Print Language: Sammarinese
[2024-07-21 18:28] LABS: MANUAL DIFF FLAG NO
[2024-07-21 18:29] LABS: Basophils Percent Auto 0.4 % (0-2); Eosinophils Absolute Auto 0.3 X10*3/uL (0.0-0.4); Eosinophils Percent Auto 3.4 % (0-4); Hemoglobin 14.9 g/dl (14.0-18.0); Imm Gran Abs Auto 0.03 X10*3/uL (0.00-0.03); Imm Gran Pct Auto 0.3 % (0.0-0.4); Lymphocytes Absolute Auto 2.7 X10*3/uL (1.2-4.9); Lymphocytes Percent Auto 26.7 % (20-40); Mean Corpuscular HGB Conc 34.7 g/dl (31.0-36.0); Mean Corpuscular Hemoglobin 31.3 pg (27.0-33.0); Mean Corpuscular Volume 90.3 fL (80.0-98.0); Mean Platelet Volume 8.8 fL (9.4-12.4); Monocytes Absolute Auto 0.9 X10*3/uL (0.1-1.2); Monocytes Percent Auto 9.1 % (2-11); Neutrophils Absolute Auto 6.1 x10*3/uL (2.0-8.3); Neutrophils Percent Auto 60.1 % (45-73); Platelet Count 248 X10*3/uL (160-400); Red Blood Count 4.76 X10*6/uL (4.60-5.80); Red Cell Distribution Width 13.9 % (11.0-16.0); White Blood Count 10.1 X10*3/uL (4.8-10.8)
[2024-07-21] MEDS: Aspirin 81 MG TAB.CHEW 324 MG PO (18:31)
[2024-07-21 18:43] LABS: Alanine Aminotransferase 39 U/L (0-40); Albumin Level 4.4 g/dL (3.5-5.0); Alkaline Phosphatase 87 U/L (39-117); Anion Gap 11 (12-20); Aspartate Amino Transferase 36 U/L (5-37); Bilirubin Direct 0.2 mg/dL (0.0-0.5); Bilirubin Total 0.4 mg/dL (0.0-1.0); Blood Urea Nitrogen 15 mg/dL (9-16); Calcium 9.7 mg/dL (8.4-10.2); Carbon Dioxide 27 mmol/L (22-29); Chloride 108 mmol/L (96-108); Creatinine Clr Calc Pharmacy 103.1; Estimated Glomerular Filt Rate > 60; Glucose Random 95 mg/dL (60-115); Magnesium 1.9 mg/dL (1.6-2.6); Potassium 4.4 mmol/L (3.3-5.1); Sodium 142 mmol/L (135-145); Total Protein 6.8 g/dL (6.5-8.0)
[2024-07-21 18:52] LABS: Troponin-I High Sensitivity < 2.7 ng/L (<3.5-35.0)
[2024-07-21 19:12] LABS: Influenza A PCR NEGATIVE (Negative); Influenza B PCR NEGATIVE (Negative); Resp Syncy Virus RNA Qual PCR NEGATIVE (Negative); SARS COV2 PCR INHOUSE NEGATIVE (Negative)
[2024-07-21 20:44] LABS: Troponin-I High Sensitivity < 2.7 ng/L (<3.5-35.0)
[2024-07-21 21:07] VITALS: BP 136/86; PULSE 53; RESP 16; TEMP 36.5; O2SAT 96
== END 2024-07-21 21:08 | disposition home or self-care (01) ==
PROVIDERS: Physician Assistant; Physician Assistant Medical; Emergency Provider Emergency Medicine; PCP Physician Assistant
DX: R07.89 Other chest pain (principal); I25.10 Atherosclerotic heart disease of native coronary artery without angina pectoris; F17.210 Nicotine dependence, cigarettes, uncomplicated; Z03.818 Encounter for observation for suspected exposure to other biological agents ruled out; Z79.899 Other long term (current) drug therapy
CPT/HCPCS: 0241U; 36415; 71046; 80048; 80076; 83735; 84484; 85025; 93005; 99283; 99284

== ENCOUNTER → 2024-07-21 17:52 | Outpatient (BNV) | payer OTHER, SELFPAY | PROVIDERS: Emergency Provider Emergency Medicine; PCP Physician Assistant; Visit Provider Internal Medicine Cardiovascular Disease | DX: I25.2 Old myocardial infarction (principal) | CPT/HCPCS: 93010 ==

== ENCOUNTER → 2024-07-21 18:06 | Outpatient (BNV) | payer OTHER, SELFPAY | PROVIDERS: PCP Physician Assistant; Visit Provider Radiology Diagnostic Radiology | DX: R07.9 Chest pain, unspecified (principal) | CPT/HCPCS: 71046 ==